=== PATIENT | male | born 1970 | race Two or more races ===

== ENCOUNTER 2021-07-29 00:51 | Emergency (ER) | payer OTHER ==
[2021-06-11 09:15] VITALS: BP 107/75
[~2021-07-29 00:51] MED LIST: ATOR20TA PO; INSU100V8 SQ; METF10007 PO; SITA50TA PO
== END 2021-07-29 02:51 | disposition left against medical advice (07) ==
LOC: ER 00:51
DX: S99.929A Unspecified injury of unspecified foot, initial encounter (principal); Z53.21 Procedure and treatment not carried out due to patient leaving prior to being seen by health care provider; X58.XXXA Exposure to other specified factors, initial encounter; Y93.89 Activity, other specified; Y92.89 Other specified places as the place of occurrence of the external cause; Y99.8 Other external cause status

== ENCOUNTER 2021-08-31 08:12 | Emergency (ER) | payer OTHER ==
[~2021-08-31] VITALS: Ht 172.7 cm; Wt 104.5 kg
[2021-08-31 08:17] VITALS: BP 138/77
--- NOTE | 2021-08-31 09:26 | ED.ADGEN ---
Past Medical History Past Medical History: Diabetes-Type II Additional Past Medical Histor: SEPSIS,OSTEOMYELITIS Past Surgical History: Other Additional Past Surgical Histo: L GREAT TOE AMP,L 2ND TOE AMPUTATION Smoking Status: Former Smoker Alcohol Use: None General Adult EDM: Chief Complaint: WOUND CHECK HPI: HPI: Patient is a 51 year old male coming in requesting wound care. Patient has a history of a left great toe amputation about 3 months ago. Has been getting wound care q. 4 days at the wound care clinic. Patient had an appointment yesterday but was late and they were unable to fit him in. Presents the emergency department because he is concerned that if it does not get cleaned out and will get infected. No other complaints Review of Systems: Review of Systems: All other systems within normal limits except for as noted in the HPI Allergies: Allergies: Allergies Coded Allergies Type Severity Reaction Last Updated Verified No Known Drug Allergies 06/11/21 No Physical Exam: PE: Constitutional: Well developed, well nourished, no acute distress, non-toxic appearance. [] HENT: Normocephalic, atraumatic, bilateral external ears normal, nose normal. [] Eyes: PERRLA, conjunctiva normal, no discharge. [] Neck: No rigidity, supple, no stridor. [] Cardiovascular: Regular rate and rhythm, brisk cap refill [] Lungs & Thorax: Non labored symmetric respirations, no tachypnea or respiratory distress [] Abdomen: Soft, nondistended. Skin: Warm, dry, no erythema, no rash. Left foot wound clean and dry. No signs of drainage, dehiscence, or infection Back: Unremarkable Extremities: No deformities, range of motion grossly intact, no lower extremity edema [] Neurologic: Alert and oriented X 3, no focal deficits noted. [] Psychologic: Affect normal, judgement normal, mood normal. [] Current Patient Data: Vital Signs: Vital Signs Date Time Temp Pulse Resp B/P (MAP) Pulse Ox O2 Delivery O2 Flow Rate FiO2 08/31/21 08:17 98.7 78 16 138/77 (97) 98 Room Air 98.7 EKG: EKG: [] Heart Score: C/O Chest Pain: No Risk Factors: Risk Factors: DM, Current or recent (<one month) smoker, HTN, HLP, family history of CAD, obesity. Risk Scores: Score 0 - 3: 2.5% MACE over next 6 weeks - Discharge Home Score 4 - 6: 20.3% MACE over next 6 weeks - Admit for Clinical Observation Score 7 - 10: 72.7% MACE over next 6 weeks - Early Invasive Strategies Radiology/Procedures: Radiology/Procedures: [] Course & Med Decision Making: Course & Med Decision Making Wound with dressing supplies available in the emergency department Mary Disclaimer: Dragon Disclaimer: This electronic medical record was generated, in whole or in part, using a voice recognition dictation system. Departure Departure Impression: Primary Impression: Encounter for wound care Disposition: HOME / SELF CARE / HOMELESS Condition: STABLE Referrals: NO PCP (PCP) Patient Instructions: Wound Care, Muza-rb-Aqyg ANDRES LOCKWOOD MD Aug 31, 2021 09:26
== END 2021-08-31 09:50 | disposition home or self-care (01) ==
LOC: ER 08:12
DX: Z89.412 Acquired absence of left great toe (principal); E11.9 Type 2 diabetes mellitus without complications; Z87.891 Personal history of nicotine dependence
CPT/HCPCS: 99281; 99282

== ENCOUNTER 2022-02-05 18:04 | Emergency (ER) | payer SELFPAY ==
[~2022-02-05] VITALS: Ht 177.8 cm; Wt 79.5 kg
[~2022-02-05 18:04] MED LIST changes: +AMOX1TAB61 PO; +CANA100T PO
[2022-02-05] MEDS ORDERED: SULF1TAB24 PO (19:00)
--- NOTE | 2022-02-05 19:07 | PHYS DOC ---
Past Medical History Past Medical History: Diabetes-Type II, High Cholesterol Additional Past Medical Histor: SEPSIS,OSTEOMYELITIS Past Surgical History: Other Additional Past Surgical Histo: L GREAT TOE AMP 2018,L 2ND TOE AMPUTATION 2020 Smoking Status: Never Smoker Alcohol Use: None General Adult EDM: Chief Complaint: TOE PROBLEM HPI: HPI: Patient is a 51 year old diabetic male who presents with left foot pain. Patient has had both digit 1 and digit 2 amputated from the left foot. Patient states that 2 days ago, he noticed that his sock had some blood on it after work. From that time, he states he has been cleaning the wound with rubbing alcohol. He states he attempted to have evaluation from his primary doctor, but they told him to continue good wound care and present to the ER for got worse. Patient is concerned that the wound is developing an infection. He denies fever, chills, generalized weakness, purulent drainage from the wound, surrounding erythema. Review of Systems: Review of Systems: ROS negative or noncontributory except as mentioned in HPI. Heart Score: C/O Chest Pain: No Allergies: Allergies: Allergies Coded Allergies Type Severity Reaction Last Updated Verified No Known Drug Allergies 06/11/21 No Physical Exam: PE: Constitutional: Well developed, well nourished, no acute distress, non-toxic appearance. HENT: Normocephalic, atraumatic, bilateral external ears normal, nose normal. Eyes: EOMI, conjunctiva normal, no discharge. Neck: Normal range of motion, no stridor. Skin: Less than 1 cm x 2 cm somewhat linear wound noted to the would be web space medial to digit 3 without surrounding erythema/induration, no fluctuance or active drainage. Skin otherwise warm, dry, no erythema. Extremities: No tenderness, no cyanosis, no clubbing, ROM intact, no edema. Neurologic: Alert and oriented x4, steady and symmetrical upright gait, no focal deficits noted. Current Patient Data: Vital Signs: Vital Signs Date Time Temp Pulse Resp B/P (MAP) Pulse Ox O2 Delivery O2 Flow Rate FiO2 02/05/22 19:53 85 22 117/78 (91) 96 Room Air 02/05/22 18:40 98.6 93 20 146/91 (109) 97 Room Air 98.6 Course & Med Decision Making: Course & Med Decision Making Pertinent Labs and Imaging studies reviewed. (See chart for details) Patient is a 51-year-old diabetic male with history of digit 1 and 2 toe amputations on the left foot who presents with wound to his left foot. Patient has great concern about infection, as he states that is how his other tubes ended up needing to be amputated. There is no active drainage from the wound and there does not appear to be an abscess, however will provide patient with a course of Bactrim prophylactically. Patient strongly encouraged to follow-up with his primary care doctor and/or podiatry regarding further wound management and monitoring. Return precautions were provided. Patient understands and is agreeable to discharge plan. Dragon Disclaimer: [employer] Disclaimer: This electronic medical record was generated, in whole or in part, using a voice recognition dictation system. Departure Departure Impression: Primary Impression: Wound of foot Additional Impressions: History of diabetes mellitus, type II History of amputation of toe Disposition: HOME / SELF CARE / HOMELESS Condition: STABLE Referrals: NO PCP (PCP) GIULIANA BYRD DPTushar Patient Instructions: Diabetes and Foot Care, Wound Care, [id number] Additional Instructions: INSTRUCCIONES GENERALES DE TAMEKA DEL DEPARTAMENTO DE EMERGENCIA Rosalba por venir aida al Departamento de Emergencias (ED) de [facility] y confiarnos lucas atencin. Confiamos en que haya tenido juancarlos experiencia positiva en nuestro Departamento de Emergencias. Si desea hablar con la gerencia del departamento, puede llamar al director al . LIDYA INSTRUCCIONES DE SEGUIMIENTO SON LAS SIGUIENTES: 1. Orquidea un seguimiento con lucas mdico de atencin primaria. Si no tiene un mdico de cabecera, solicite juancarlos lista de recursos de mdicos o clnicas que puedan ayudarlo con la atencin de seguimiento. 2. El proveedor de emergencia prabhakar interpretado lidya estudios de imgenes, si se ordenaron. El especialista en imgenes de radiologa tambin los odessa. Si hay un cambio en los hallazgos, se le notificar en 48 horas cuando sea posible. 3. Si se prabhakar realizado juancarlos prueba de laboratorio o un cultivo, se revisarn lidya resultados y se le notificar si necesita un cambio en el tratamiento. 4. Vigile lucas nivel de azcar en lolis mientras rebeca freddie antibitico y metformina al mismo tiempo. Siga las instrucciones verbalizadas y consulte las copias impresas si es necesario. INSTRUCCIONES E INFORMACIN ADICIONALES: 1. Lucas atencin hoy prabhakar sido supervisada por un mdico especialmente capacitado en atencin de emergencia. Muchos problemas requieren ms de juancarlos evaluacin para un diagnstico y tratamiento completos. Le recomendamos que programe lucas dylon de seguimiento segn lo recomendado para garantizar el tratamiento completo de lucas enfermedad o lesin. Si no puede obtener atencin de seguimiento y contina teniendo un problema, o si lucas condicin empeora, le recomendamos que regrese al servicio de urgencias. 2. No podemos determinar de manera banerjee lucas condicin por telfono ni podemos nereida consejos mdicos slidos por telfono. Por estas razones de seguridad, si llama para pedir consejo mdico, le pediremos que vaya al servicio de urgencias para juancarlos evaluacin adicional. 3. Si tiene alguna pregunta sobre estas instrucciones de tameka, llame al ED al . INFORMACIN DE SEGURIDAD: En inters de la seguridad, el bienestar y la prevencin de lesiones; le recomendamos que use lucas cinturn de seguridad, si fuma; bastante fumador, y alentamos a la bridget a usar un sushila protector para andar en bicicleta y otros eventos deportivos que presenten un mayor riesgo de lesiones en la roxi. SI LIDYA SNTOMAS EMPEORAN O SE DESARROLLAN NUEVOS SNTOMAS, O SI TIENE PREOCUPACIONES SOBRE LUCAS CONDICIN; O SI LUCAS CONDICIN EMPEORA MIENTRAS ESPERA LUCAS DYLON DE SEGUIMIENTO; PNGASE EN CONTACTO CON LUCAS MDICO DE ATENCIN PRIMARIA, EL MDICO CUYO NOMBRE Y NMERO LE DIERON, O REGRESE AL ED INMEDIATAMENTE. Scripts Sulfamethoxazole/Trimethoprim (BACTRIM DS TABLET) 1 Each Tablet 1 TAB PO BID for 10 Days, #20 TAB 0 Refills Rebeca juancarlos pastilla por la boca dos veces al liana para 10 cutler. Prov: KARIN ONEILL 02/05/22 KARIN ONEILL Feb 05, 2022 19:07
[2022-02-05 19:53] VITALS: BP 117/78
== END 2022-02-05 19:55 | disposition home or self-care (01) ==
LOC: ER 18:04
DX: M79.672 Pain in left foot (principal); E11.9 Type 2 diabetes mellitus without complications; E78.00 Pure hypercholesterolemia, unspecified; Z89.422 Acquired absence of other left toe(s)
CPT/HCPCS: 99283